=== PATIENT | female | born 1995 ===

== ENCOUNTER 2020-06-16 13:36 | Outpatient (REF) | payer SELFPAY ==
[2020-06-17 08:41] LABS: SARS COV2 IgG Negative (Negative)
== END 2020-06-16 13:37 | disposition home or self-care (01) ==
LOC: HO.LNC 13:36
PROVIDERS: Visit Provider Pathology Anatomic Pathology & Clinical Pathology
DX: Z13.89 Encounter for screening for other disorder (principal)
CPT/HCPCS: 36415; 86769